=== PATIENT | male | born 1970 | race Caucasian/White ===

== ENCOUNTER 2019-03-25 23:04 | Emergency (ER) | payer OTHER ==
[~2019-03-25] VITALS: Ht 180.3 cm; Wt 108.9 kg
[~2019-03-25 23:04] MED LIST: IBUPROFEN 800800 MG PO; INDOCIN SR75 MG PO; INDOMETHACIN 5050 M1 PO
[2019-03-25] MEDS ORDERED: LISINOPRIL (23:14)
[2019-03-25] MEDS ORDERED: CARVEDILOL (23:14)
[2019-03-25] MEDS ORDERED: FUROSEMIDE (23:15)
[2019-03-25] MEDS ORDERED: PAXIL (23:15)
[2019-03-25] MEDS ORDERED: NORCO 5-325 TA1 EAC1 PO (23:55)
[2019-03-26 00:02] VITALS: BP 142/101
== END 2019-03-26 00:02 | disposition home or self-care (01) ==
LOC: M.ERS 23:04
DX: R04.0 Epistaxis (principal); I50.9 Heart failure, unspecified; M10.9 Gout, unspecified

== ENCOUNTER 2019-05-13 03:04 | Emergency (ER) | payer OTHER ==
[~2019-05-13] VITALS: Ht 154.9 cm; Wt 120.2 kg
[~2019-05-13 03:04] MED LIST changes: +CARVEDILOL; +FUROSEMIDE; +LISINOPRIL; +NORCO 5-325 TA1 EAC1 PO; +PAXIL
[2019-05-13] MEDS ORDERED: EFFEXOR 5050 MG/1 T1 PO ×2 (03:16)
[2019-05-13 04:18] VITALS: BP 113/71
[2019-05-13] MEDS ORDERED: PERCOCET 5-3251 EACH PO (09:25)
[2019-05-13] MEDS ORDERED: LIPITOR10 MG PO (09:39)
[2019-05-13] MEDS ORDERED: FUROSEMIDE 20 M20 MG PO (09:40)
[2019-05-13] MEDS ORDERED: FLOMAX0.4 MG PO (09:40)
[2019-05-13] MEDS ORDERED: VENLAFAXINE HCL25 MG PO (09:40)
[2019-05-13] MEDS ORDERED: LISINOPRIL2.5 MG PO (09:40)
[2019-05-13] MEDS ORDERED: CARVEDILOL25 MG PO (09:41)
[2019-05-13] MEDS ORDERED: ASA81BEC PO (09:41)
== END 2019-05-13 04:18 | disposition home or self-care (01) ==
LOC: M.ERS 03:04
DX: R04.0 Epistaxis (principal); I50.9 Heart failure, unspecified; M10.9 Gout, unspecified

== ENCOUNTER 2019-05-13 09:13 | Emergency (ER) | payer OTHER ==
[~2019-05-13] VITALS: Ht 182.9 cm; Wt 108.9 kg
[~2019-05-13 09:13] MED LIST changes: +EFFEXOR 5050 MG/1 T1 PO
[2019-05-13] MEDS ORDERED: PERCOCET 5-3251 EACH PO (09:25)
[2019-05-13] MEDS ORDERED: LIPITOR10 MG PO (09:39)
[2019-05-13] MEDS ORDERED: FLOMAX0.4 MG PO (09:40)
[2019-05-13] MEDS ORDERED: VENLAFAXINE HCL25 MG PO (09:40)
[2019-05-13] MEDS ORDERED: FUROSEMIDE 20 M20 MG PO (09:40)
[2019-05-13] MEDS ORDERED: LISINOPRIL2.5 MG PO (09:40)
[2019-05-13 09:41] LABS: ABSOLUTE BASOPHILS 0.1 thou/uL (0.0-0.2); ABSOLUTE EOSINOPHILS 0.2 thou/uL (0.0-0.7); ABSOLUTE LYMPHOCYTES 2.1 thou/uL (0.8-5.3); ABSOLUTE MONOCYTES 0.8 thou/uL (0.0-1.2); ABSOLUTE NEUTROPHILS 4.6 thou/uL (1.6-8.1); BASOPHILS 0.8 %; EOSINOPHILS 2.6 %; HEMATOCRIT 34.5 % (42.0-52.0); HEMOGLOBIN 11.4 gm/dL (14.0-18.0); LYMPHOCYTES 27.4 %; MCH 23.8 pg (26.0-34.0); MCHC 33.1 g/dL (28.0-37.0); MCV 71.8 fL (80.0-100.0); MONOCYTES 9.7 %; MPV 7.4 fl. (7.2-11.1); NUCLEATED RBCS 0 /100WBC; PLATELET COUNT* 269 thou/uL (150-400); POLYS 59.5 %; RBC 4.81 mil/uL (4.50-6.00); RDW-CV 15.7 % (10.5-14.5); WBC 7.7 thou/uL (4.0-11.0)
[2019-05-13] MEDS ORDERED: ASA81BEC PO (09:41)
[2019-05-13] MEDS ORDERED: CARVEDILOL25 MG PO (09:41)
[2019-05-13 09:48] LABS: CALCIUM 8.4 mg/dL (8.5-10.1); CREATININE 1.2 mg/dL (0.6-1.3)
[2019-05-13 10:02] LABS: INR 1.1; PROTIME 11.1 Seconds (9.20-11.50)
[2019-05-13 10:12] LABS: PLATELET ESTIMATE ADEQUATE
[2019-05-13 10:16] VITALS: BP 176/147
== END 2019-05-13 10:17 | disposition home or self-care (01) ==
LOC: M.ERS 09:13
PROVIDERS: Family Medicine
DX: R04.0 Epistaxis (principal); I50.9 Heart failure, unspecified; M10.9 Gout, unspecified

== ENCOUNTER 2019-05-13 17:30 | Emergency (ER) | payer OTHER ==
[~2019-05-13] VITALS: Ht 180.3 cm; Wt 117.9 kg
[~2019-05-13 17:30] MED LIST changes: +ASA81BEC PO; +CARVEDILOL25 MG PO; +FLOMAX0.4 MG PO; +FUROSEMIDE 20 M20 MG PO; +LIPITOR10 MG PO; +LISINOPRIL2.5 MG PO; +PERCOCET 5-3251 EACH PO; +VENLAFAXINE HCL25 MG PO
[2019-05-13 17:56] VITALS: BP 179/112
== END 2019-05-13 17:57 | disposition home or self-care (01) ==
LOC: M.ERS 17:30
DX: R04.0 Epistaxis (principal); I50.9 Heart failure, unspecified; M10.9 Gout, unspecified

== ENCOUNTER 2019-05-14 11:48 | Emergency (ER) | payer OTHER ==
[~2019-05-14] VITALS: Ht 180.3 cm; Wt 117.9 kg
[2019-05-14 12:39] VITALS: BP 128/89
== END 2019-05-14 12:39 | disposition short-term general hospital (02) ==
LOC: M.ERS 11:48
DX: R04.0 Epistaxis (principal); I50.9 Heart failure, unspecified; M10.9 Gout, unspecified